=== PATIENT | female | born 1985 | race Caucasian/White ===

== ENCOUNTER 2018-05-28 06:29 | Inpatient (IN) | payer OTHER ==
[2018-05-28] MEDS ORDERED: AMPICILLIN 2,000 MG in SODIUM CHLORIDE 0.9% 100 ML IVPB STA (07:09)
[2018-05-28] MEDS ORDERED: OXYTOCIN 10 UNIT/ML 1 ML VIAL IM PRN (07:09)
[2018-05-28] MEDS ORDERED: LIDOCAINE 0.5% (PF) 5 MG/ML (50 ML SDV) SQ PRN (07:09)
[2018-05-28] MEDS ORDERED: CARBOPROST TROMETHAMINE 250 MCG/ML 1 ML AMP IM PRN (07:09)
[2018-05-28] MEDS ORDERED: TERBUTALINE 1 MG/ML VIAL SQ PRN (07:09)
[2018-05-28] MEDS ORDERED: METHYLERGONOVINE 0.2 MG/ML 1 ML AMP IM PRN (07:09)
[2018-05-28] MEDS ORDERED: LACTATED RINGERS 1,000 ML IV SCH (07:15)
[2018-05-28 07:22] LABS: ALT 25 U/L (9-52); AST 26 U/L (14-36); Blood Urea Nitrogen 4 mg/dL (7-17); LDH 548 U/L (313-618); Uric Acid 3.6 mg/dL (3.7-7.4)
[2018-05-28] MEDS ORDERED: BETAMET ACET-BETAMETH SOD PHOS 6 MG/ML VIAL IM SCH (07:30)
[2018-05-28 07:47] LABS: Anisocytosis Slight; Basophils # (A) 0.2 k/uL (0-0.2); Basophils % (A) 1 %; Eosinophils # (A) 0.2 k/uL (0-0.7); Eosinophils % (A) 2 %; HCT 25.6 % (34.0-46.0); HGB 7.7 gm/dL (11.4-16.0); Hypochromasia Marked; Lymphocytes # (A) 1.8 k/uL (1.0-4.8); Lymphocytes % (A) 11 %; MCH 20.5 pg (25.0-35.0); MCHC 30.2 g/dL (31.0-37.0); MCV 68.1 fL (80.0-100.0); Mean Platelet Volume 8.1; Microcytosis Marked; Monocytes # (A) 0.7 k/uL (0-1.0); Monocytes % (A) 4 %; Neutrophils # (A) 13.1 k/uL (1.3-7.7); Neutrophils % (A) 81 %; Platelet Count 243 k/uL (150-450); Poikilocytosis Moderate; RBC 3.76 m/uL (3.80-5.40); RDW 18.3 % (11.5-15.5); WBC 16.2 k/uL (3.8-10.6)
[2018-05-28 07:48] LABS: INR 0.8 (<1.2); Partial Thromboplastin Time 22.6 sec (22.0-30.0); Prothrombin Time 9.2 sec (9.0-12.0)
[2018-05-28 07:56] LABS: Appearance,Urine Clear (Clear); Bilirubin,Urine Negative (Negative); Blood,Urine Negative (Negative); Color,Urine Yellow; Glucose,Urine (UA) Negative (Negative); Ketones,Urine Negative (Negative); Leukocyte Esterase,Urine Negative (Negative); Nitrite,Urine Negative (Negative); PH, Urine 7.5 (5.0-8.0); Protein,Urine Negative (Negative); Specific Gravity,Urine 1.011 (1.001-1.035); Urobilinogen,Urine <2.0 mg/dL (<2.0)
--- NOTE | 2018-05-28 08:05 | P.HPOB ---
History of Present Illness H&P Date: 05/28/18 Chief Complaint: Bleeding and cramping This is a 32-year-old female 3 para 1 at 31-2/7 weeks with an estimated date of confinement of 07/28/2018, who presents to labor and delivery with complaints of vaginal bleeding that began about 3 AM this morning. She did state yesterday morning at about 2:58 in the morning she did feel a gush of fluid but then never felt anything further after that and thought she had urinated. This morning she began feeling back pain and cramping along with the bleeding. She started her care with me and showed up for 2 visits and then no longer showed up to the office. She was referred to maternal medicine due to her history of a delivery at 26 weeks but states she has not been to high risk in over 2 months. There has not been any records sent to my office from maternal- medicine and she again did not follow up after her second visit in my office. Obstetrical history: G3 3 P1. History of a 26 weeks delivery and a miscarriage. Review of Systems Constitutional: Denies chills, Denies fever Eyes: denies blurred vision, denies pain Ears, nose, mouth and throat: Denies headache, Denies sore throat Cardiovascular: Denies chest pain, Denies shortness of breath Respiratory: Denies cough Gastrointestinal: Reports abdominal pain Genitourinary: Reports abnormal vaginal bleeding, Reports pelvic pain, Reports Musculoskeletal: Reports low back pain Integumentary: Denies pruritus, Denies rash Neurological: Denies numbness, Denies weakness Past Medical History History of Any Multi-Drug Resistant Organisms: None Reported Past Surgical History: No Surgical Hx Reported Past Psychological History: No Psychological Hx Reported Smoking Status: Current every day smoker Past Alcohol Use History: None Reported Past Drug Use History: Marijuana (States history in the beginning of the ) Medications and Allergies Home Medications Medication Instructions Recorded Confirmed Type No Known Home Medications 05/28/18 05/28/18 History Allergies Allergy/AdvReac Type Severity Reaction Status Date / Time No Known Allergies Allergy Verified 05/28/18 06:34 Exam Osteopathic Statement: *. No significant issues noted on an osteopathic structural exam other than those noted in the History and Physical/Consult. Intake and Output 05/27/18 05/28/18 05/28/18 22:59 06:59 14:59 Other: Weight 73.482 kg HEENT: Within normal limits Heart: Regular rate and rhythm Lungs: Clear to auscultation bilaterally Abdomen: Cervix: Rim/bulging bag/0 station with some bloody discharge. Solitario is palpated and ruptured with clear fluid noted. heart tones: Reactive Contractions: Every 2-3 minutes Extremities: Negative Homans Results Result Diagrams: 05/28/18 06:55 05/28/18 06:55 Abnormal Lab Results - Last 24 Hours (Table) 05/28/18 05/28/18 05/28/18 Range/Units 06:55 06:55 06:55 WBC 16.2 H (3.8-10.6) k/uL RBC 3.76 L (3.80-5.40) m/uL Hgb 7.7 L (11.4-16.0) gm/dL Hct 25.6 L (34.0-46.0) % MCV 68.1 L (80.0-100.0) fL MCH 20.5 L (25.0-35.0) pg MCHC 30.2 L (31.0-37.0) g/dL RDW 18.3 H (11.5-15.5) % Neutrophils # 13.1 H (1.3-7.7) k/uL Fibrinogen 671 H (200-500) mg/dL BUN 4 L (7-17) mg/dL Creatinine 0.49 L (0.52-1.04) mg/dL Uric Acid 3.6 L (3.7-7.4) mg/dL Assessment and Plan (1) 31 weeks gestation of Current Visit: Yes Status: Acute Code(s): Z3A.31 - 31 WEEKS GESTATION OF SNOMED Code(s): 84013779 (2) labor in third trimester with delivery Current Visit: Yes Status: Acute Code(s): O60.14X0 - LABOR THIRD TRI W DELIVERY THIRD TRI, UNSP SNOMED Code(s): 3072723 Plan: Admission for active labor, eminent delivery. Will obtain all labs, urine drug screen and PIH labs. Expectant management. Pediatrics is notified.
[2018-05-28 08:09] LABS: Amphetamine Screen,Urine Not Detected (NotDetected); Barbiturate Screen,Urine Not Detected (NotDetected); Benzodiazepines Screen,Urine Not Detected (NotDetected); Cocaine Screen,Urine Not Detected (NotDetected); Methadone Screen, Urine Not Detected (NotDetected); Opiate Screen,Urine Not Detected (NotDetected); Oxycodone Screen, Urine Not Detected (NotDetected); Phencyclidine Screen,Urine Not Detected (NotDetected); Tricyclic Antidepressant,Urine Not Detected (NotDetected); Urn Cannabinoid Scrn Not Detected (NotDetected)
[2018-05-28] MEDS ORDERED: diphenhydrAMINE 50 MG CAP PO PRN (08:54)
[2018-05-28] MEDS ORDERED: SIMETHICONE 80 MG CHEWABLE PO PRN (08:54)
[2018-05-28] MEDS ORDERED: diphenhydrAMINE 50 MG/ML 1 ML VIAL IVP PRN ×2 (08:54)
[2018-05-28] MEDS ORDERED: ZOLPIDEM 5 MG TAB PO PRN (08:54)
[2018-05-28] MEDS ORDERED: ACETAMINOPHEN TAB 325 MG TAB PO PRN (08:54)
[2018-05-28] MEDS ORDERED: BENZOCAINE/MENTHOL SPRAY 1 GM/SPRAY AEROSOL TOPICAL PRN (08:54)
[2018-05-28] MEDS ORDERED: HYDROCORTISONE 2.5% RECTAL CREAM 30 GM TUBE RECTAL PRN (08:54)
[2018-05-28] MEDS ORDERED: WITCH HAZEL 1 EACH MED..PAD TOPICAL PRN (08:54)
[2018-05-28] MEDS ORDERED: IBUPROFEN 600 MG TAB PO PRN (08:54)
[2018-05-28] MEDS ORDERED: OXYTOCIN 20 UNITS/1000 ML NS 1,000 ML IV SCH (08:54)
[2018-05-28] MEDS ORDERED: LANOLIN CREAM 5 GM TUBE TOPICAL PRN (08:54)
[2018-05-28] MEDS ORDERED: diphenhydrAMINE 25 MG CAP PO PRN (08:54)
--- NOTE | 2018-05-28 08:56 | P.PROBDLV ---
Vaginal Delivery Note - . Vaginal Delivery Note: Patient began pushing shortly after arrival when she was found to be rim. Artificial rupture of membranes was carried out and clear fluid was noted along with some blood clots. She pushed for a short while and infant's head came to a crown. Infant's head delivered in a left occiput posterior lie followed immediately by the remainder the body. Nose and mouth were bulb suctioned after delivery. Several clots were attached to the baby and came out with the fluid. Cord was clamped and cut and was taken to warmer for pediatric evaluation and then to the nursery. A viable female infant is noted. Apgars and weight are pending at this time. Placenta delivered shortly thereafter, intact, with a three-vessel cord. Area of dark coloration and adherent clot was noted on at least 25-30% of the placenta. Uterus did contract fairly well after oxytocin was given and uterine massage was carried out. Inspection of the perineum revealed a first-degree perineal laceration. This area was anesthetized with 1% lidocaine and then sutured with 3-0 Vicryl suture in a running locked fashion. Estimated blood loss is approximately 100 mL's. Mother is in stable condition and is being evaluated in level I nursery by pediatrics.
[2018-05-28 09:50] VITALS: BMI 26.1
[2018-05-28] MEDS ORDERED: AMPICILLIN 1,000 MG in SODIUM CHLORIDE 0.9% 50 ML IVPB SCH (11:30)
[2018-05-28 12:20] LABS: HIV 1 AB Non-Reactive (Non-Reactive); HIV AB P24 Non-Reactive (Non-Reactive); HIV P24 AG Non-Reactive (Non-Reactive)
[2018-05-28 15:07] LABS: Anisocytosis Slight; Basophils % (A) 0 %; Eosinophils % (A) 0 %; HCT 23.3 % (34.0-46.0); Hypochromasia Marked; Lymphocytes # (A) 0.8 k/uL (1.0-4.8); Lymphocytes % (A) 4 %; MCH 20.1 pg (25.0-35.0); MCHC 29.1 g/dL (31.0-37.0); Mean Platelet Volume 9.8; Microcytosis Marked; Monocytes # (A) 0.3 k/uL (0-1.0); Monocytes % (A) 1 %; Neutrophils # (A) 17.9 k/uL (1.3-7.7); Neutrophils % (A) 94 %; Platelet Count 219 k/uL (150-450); Poikilocytosis Moderate; RBC 3.38 m/uL (3.80-5.40); RDW 18.2 % (11.5-15.5); WBC 19.1 k/uL (3.8-10.6)
[2018-05-28 15:09] LABS: HGB 6.8 gm/dL (11.4-16.0)
[2018-05-28 15:14] VITALS: RESP 16
[2018-05-29] MEDS: SENNOSIDES-DOCUSATE SODIUM 1 EACH TAB PO SCH ×2 (05:44→09:03)
[2018-05-29 06:04] LABS: Anisocytosis Slight; Basophils % (A) 0 %; Eosinophils % (A) 0 %; HCT 23.2 % (34.0-46.0); Hypochromasia Marked; Lymphocytes # (A) 1.9 k/uL (1.0-4.8); Lymphocytes % (A) 10 %; MCH 20.3 pg (25.0-35.0); MCHC 29.5 g/dL (31.0-37.0); MCV 68.9 fL (80.0-100.0); Microcytosis Marked; Monocytes # (A) 0.7 k/uL (0-1.0); Monocytes % (A) 4 %; Neutrophils # (A) 16.6 k/uL (1.3-7.7); Neutrophils % (A) 85 %; Platelet Count 271 k/uL (150-450); Poikilocytosis Moderate; RBC 3.37 m/uL (3.80-5.40); RDW 18.8 % (11.5-15.5); WBC 19.6 k/uL (3.8-10.6)
[2018-05-29 06:08] LABS: HGB 6.8 gm/dL (11.4-16.0)
[2018-05-29 07:37] VITALS: BP 122/70; PULSE 84; TEMP 98.3
--- NOTE | 2018-05-29 09:12 | P.DS ---
Providers Date of admission: 05/28/18 06:57 Expected date of discharge: 05/29/18 Attending physician: Marylin Scales Primary care physician: Stated None - Discharge Diagnosis(es) (1) 31 weeks gestation of Current Visit: Yes Status: Acute (2) labor in third trimester with delivery Current Visit: Yes Status: Acute Hospital Course: This is a 32-year-old female 3 para 1 at 31-2/7 weeks who presented in active labor with vaginal bleeding. She delivered vaginally a viable female infant with scores pending and weight of 4 lbs. 9 oz. Placental abruption was noted at delivery with adherent clot. [facility]. Patient's bleeding has been minimal since delivery. Pain has been minimal. She was anemic with a hemoglobin of 7.7 on admission which did drop to 6.8 at 6 hours after delivery but has been stable this morning at 6.8. She denies any dizziness or lightheadedness. She has been afebrile. Vital signs are otherwise stable. Abdomen is firm and nontender. Extremities show negative Homans. Impression is status post vaginal delivery with placental abruption. Plan is to discharge home today. She is advised to take Slow Fe [id number] daily. She would like a tubal ligation and is advised to go to the office to have tubal papers signed before her visit. She is advised to follow up in the office in 6 weeks for a visit. She is advised to call the office if she has any further questions or concerns prior to her appointment time. Routine instructions are given. Procedures: Spontaneous vaginal delivery of a viable female on 05/28/2018 Patient Condition at Discharge: Stable Plan - Discharge Summary New Discharge Prescriptions: Continue Pnv,Calcium 72/Iron/Folic Acid [ Plus Tablet] 1 each PO DAILY Calcium Carbonate [Tums] 500 mg PO Q6HR PRN PRN Reason: Gi Upset Acetaminophen [Tylenol] 650 mg PO Q6HR Discharge Medication List Acetaminophen [Tylenol] 650 mg PO Q6HR 05/28/18 [History] Calcium Carbonate [Tums] 500 mg PO Q6HR PRN 05/28/18 [History] Pnv,Calcium 72/Iron/Folic Acid [ Plus Tablet] 1 each PO DAILY 05/28/18 [History] Follow up Appointment(s)/Referral(s): Marylin Scales DO [Doctor of Osteopathic Medicine] - 6 Weeks Activity/Diet/Wound Care/Special Instructions: Instructions 1. Do not begin any exercise program for 3 weeks. 2. Do not resume sexual relations for 3 weeks or longer if uncomfortable. 3. You may take tub baths or showers at any time. 4. You may use tampons if desired after 3 weeks. 5. Keep the area of episiotomy (stitches) clean and dry. 6. If you are not nursing, wear a good fitting, supportive bra during the day and limit fluid intake for at least 1 week to prevent breast engorgement. 7. Call the office, [phone], within the next week to make appointment for your 6 week checkup if it has not already been made. 8. Report any of the following occurrences to the doctor promptly: a. Heavy, excessive bleeding b. Chills, fever c. Burning or frequency of urination d. Pain or redness and breasts if nursing e. Increasing pain or swelling in episiotomy (stitches). In addition to the above instructions, the following additional should be followed: 1. No heavy lifting or straining (exercising) until after 6 week checkup. 2. Keep abdominal incision clean and dry: You may wear a dressing if more comfortable. 3. Make office appointment for 10 days after going home or as instructed by her doctor. Discharge Disposition: HOME SELF-CARE
[2018-05-29 14:47] LABS: N. gonorrhoeae,PCR Negative (Neg,Equiv); Neisseria Source Urine
[2018-05-29 14:50] LABS: C. trachomatis,PCR Negative (Neg,Equiv); Chlamydia trachomatis Source Urine
== END 2018-05-29 09:20 | disposition home or self-care (01) | DRG 805 ==
LOC: FBPOP 06:29 → 4FBP 06:57
PROVIDERS: ADMIT Obstetrics & Gynecology; ATTEND Obstetrics & Gynecology
PROC: 10E0XZZ Delivery of Products of Conception, External Approach (ICD-10-PCS; principal; 2018-05-28)
PROC: 0HQ9XZZ Repair Perineum Skin, External Approach (ICD-10-PCS; 2018-05-28)
DX: O45.93 Premature separation of placenta, unspecified, third trimester (principal); O60.14X0 Preterm labor third trimester with preterm delivery third trimester, not applicable or unspecified; Z37.0 Single live birth; O70.0 First degree perineal laceration during delivery; O99.02 Anemia complicating childbirth; D64.9 Anemia, unspecified; O99.334 Smoking (tobacco) complicating childbirth; F17.200 Nicotine dependence, unspecified, uncomplicated; Z3A.31 31 weeks gestation of pregnancy
CPT/HCPCS: 59025; 80306; 81003; 82565; 82570; 82947; 83615; 84112; 84156; 84450; 84460; 84520; 84550; 85025; 85384; 85610; 85730; 86762; 86780; 86850; 86900; 86901; 87340; 87390; 87491; 87591; 88307; 99215

== ENCOUNTER 2021-01-15 04:30 | Inpatient (IN) | payer OTHER ==
[2021-01-15] MEDS ORDERED: OXYTOCIN 30 UNITS/500 ML NS 30 UNIT in SALINE 1 500ML.BAG IV SCH (05:15)
[2021-01-15] MEDS ORDERED: diphenhydrAMINE 25 MG CAP PO PRN (05:40)
[2021-01-15] MEDS ORDERED: ZOLPIDEM 5 MG TAB PO PRN (05:40)
[2021-01-15] MEDS ORDERED: ACETAMINOPHEN TAB 325 MG TAB PO PRN (05:40)
[2021-01-15] MEDS ORDERED: IBUPROFEN 600 MG TAB PO PRN (05:40)
[2021-01-15] MEDS ORDERED: HYDROCORTISONE 2.5% RECTAL CREAM 30 GM TUBE RECTAL PRN (05:40)
[2021-01-15] MEDS ORDERED: diphenhydrAMINE 50 MG CAP PO PRN (05:40)
[2021-01-15] MEDS ORDERED: LANOLIN CREAM 5 GM TUBE TOPICAL PRN (05:40)
[2021-01-15] MEDS ORDERED: SIMETHICONE 80 MG CHEWABLE PO PRN (05:40)
[2021-01-15] MEDS ORDERED: diphenhydrAMINE 50 MG/ML 1 ML VIAL IVP PRN ×2 (05:40)
[2021-01-15] MEDS ORDERED: BENZOCAINE/MENTHOL SPRAY 1 GM/SPRAY AEROSOL TOPICAL PRN (05:40)
[2021-01-15 06:35] LABS: Anisocytosis Slight; Basophils # (A) 0.1 k/uL (0-0.2); Basophils % (A) 0 %; Eosinophils # (A) 0.1 k/uL (0-0.7); Eosinophils % (A) 1 %; HCT 21.4 % (34.0-46.0); Hypochromasia Marked; Lymphocytes # (A) 1.4 k/uL (1.0-4.8); Lymphocytes % (A) 9 %; MCH 18.8 pg (25.0-35.0); MCHC 29.3 g/dL (31.0-37.0); MCV 64.2 fL (80.0-100.0); Mean Platelet Volume 8.6; Microcytosis Marked; Monocytes # (A) 0.6 k/uL (0-1.0); Monocytes % (A) 4 %; Neutrophils # (A) 12.7 k/uL (1.3-7.7); Neutrophils % (A) 85 %; Platelet Count 305 k/uL (150-450); Poikilocytosis Moderate; RBC 3.33 m/uL (3.80-5.40)
[2021-01-15 07:36] LABS: HGB 6.3 gm/dL (11.4-16.0)
[2021-01-15] MEDS: SENNOSIDES-DOCUSATE SODIUM 1 EACH TAB PO SCH ×2 (08:25→20:57)
[2021-01-15 08:32] LABS: Appearance,Urine Clear (Clear); Bacteria,Urine Rare /hpf; Bilirubin,Urine Negative (Negative); Blood,Urine Large (Negative); Color,Urine Yellow; Glucose,Urine (UA) Negative (Negative); Ketones,Urine Negative (Negative); Leukocyte Esterase,Urine Moderate (Negative); Mucus,Urine Occasional /hpf; Nitrite,Urine Negative (Negative); Protein,Urine 1+ (Negative); RBC,Urine >182 /hpf (0-5); Squamous Epithelial Cell,Urine 1 /hpf (0-4); Urobilinogen,Urine <2.0 mg/dL (<2.0); WBC,Urine 8 /hpf (0-5)
[2021-01-15 08:33] LABS: Amphetamine Screen,Urine Detected (NotDetected); Barbiturate Screen,Urine Not Detected (NotDetected); Benzodiazepines Screen,Urine Not Detected (NotDetected); Cocaine Screen,Urine Not Detected (NotDetected); Methadone Screen, Urine Not Detected (NotDetected); Opiate Screen,Urine Not Detected (NotDetected); Oxycodone Screen, Urine Not Detected (NotDetected); Phencyclidine Screen,Urine Not Detected (NotDetected); Tricyclic Antidepressant,Urine Not Detected (NotDetected); Urn Cannabinoid Scrn Not Detected (NotDetected)
--- NOTE | 2021-01-15 08:38 | P.HPOB ---
History of Present Illness H&P Date: 01/15/21 Chief Complaint: Unattended vaginal delivery at home This is a 35 year old 3 para 0303 woman who presents by EMS after having a spontaneous vaginal delivery at home. She reports that she is approximately 33 weeks gestation and has not had routine care. She was given an estimated due date of 03/05/2021 from a [facility]. She reports a history of anemia. She states that she began having the abdominal pain and contractions at approximately 1 AM. These were irregular. She had spontaneous rupture of membranes at approximately 2:15 AM. She then had rapid progression of the her labor and delivered on the liveborn at home. EMS was called. She did also deliver the placenta at home. Upon arrival on labor and delivery triage she was noted to be stable with moderate lochia. Infant was taken to the special care nursery for evaluation and appears to be approximately 35 weeks by Ghotra score. Weight is 5 lbs. 6 oz. Patient's obstetrical history is significant for a 26 week vaginal delivery in 2012 and a 32 week vaginal delivery in 2019. She reports being on iron for anemia with all 3 pregnancies. She denies any other chronic medical problems including high blood pressure, diabetes, asthma. She is and the father of the baby is with her. She describes having an upper respiratory infection for the past 3 weeks with cough. She had a rapid covert test yesterday which she reports was negative. She denies drug use or alcohol during the . Review of Systems Constitutional: Reports fatigue, Denies chills, Denies fever Ears, nose, mouth and throat: Reports nasal congestion Cardiovascular: Denies chest pain, Denies edema, Denies high blood pressure, Denies irregular heart beat, Denies shortness of breath Respiratory: Reports congestion, Reports cough Gastrointestinal: Denies diarrhea, Denies nausea, Denies vomiting Genitourinary: Reports as per HPI Menstruation: Reports as per HPI Integumentary: Denies rash Neurological: Denies headaches Psychiatric: Denies anxiety, Denies depression Past Medical History Past Medical History: No Reported History Additional Past Medical History / Comment(s): migraine hx, History of Any Multi-Drug Resistant Organisms: None Reported Past Surgical History: No Surgical Hx Reported Past Anesthesia/Blood Transfusion Reactions: No Reported Reaction Past Psychological History: Anxiety Additional Psychological History / Comment(s): nevermedicated for anxiety Smoking Status: Current every day smoker Past Alcohol Use History: None Reported Past Drug Use History: None Reported - Past Family History Father Additional Family Medical History / Comment(s): hypoglycemia Sister(s) Family Medical History: Seizure Disorder Additional Family Medical History / Comment(s): epilepsy Medications and Allergies Home Medications Medication Instructions Recorded Confirmed Type Pnv,Calcium 72/Iron/Folic Acid 1 each PO DAILY 05/28/18 01/15/21 History [ Plus Tablet] Allergies Allergy/AdvReac Type Severity Reaction Status Date / Time No Known Allergies Allergy Verified 01/15/21 04:38 Exam Vital Signs Temp Pulse Resp BP Pulse Ox 01/15/21 07:49 98.1 F 115 H 18 133/57 01/15/21 07:48 109 H 146/67 01/15/21 07:46 100 139/71 01/15/21 06:39 97.6 F 91 16 135/70 98 01/15/21 06:09 89 16 131/75 01/15/21 05:39 76 18 131/71 01/15/21 05:24 80 18 139/64 01/15/21 05:09 88 14 134/66 01/15/21 04:54 70 16 126/59 01/15/21 04:49 84 16 129/81 01/15/21 04:37 97.5 F L 82 16 130/79 01/15/21 04:30 97.5 F L 82 16 130/79 Intake and Output 01/14/21 01/15/21 01/15/21 22:59 06:59 14:59 Other: # Voids 0 1 Weight 69.4 kg This is a pleasant and comfortable appearing female in no obvious distress. HEENT exam is unremarkable. The heart is of regular rate and rhythm and her lungs are clear to auscultation bilaterally. She does have a productive cough. The abdomen is soft and nontender. Uterus is firm and approximately 4 cm below the umbilicus in the midline. Vaginal exam reveals bilateral periurethral abrasions. No perineal lacerations. Minimal lochia. Extremities free of edema or rash. Results Result Diagrams: 01/15/21 06:18 01/15/21 06:15 Abnormal Lab Results - Last 24 Hours (Table) 01/15/21 Range/Units 06:18 WBC 15.0 H (3.8-10.6) k/uL RBC 3.33 L (3.80-5.40) m/uL Hgb 6.3 L* (11.4-16.0) gm/dL Hct 21.4 L (34.0-46.0) % MCV 64.2 L (80.0-100.0) fL MCH 18.8 L (25.0-35.0) pg MCHC 29.3 L (31.0-37.0) g/dL RDW 19.0 H (11.5-15.5) % Neutrophils # 12.7 H (1.3-7.7) k/uL Assessment and Plan (1) delivery Current Visit: Yes Status: Acute Code(s): O60.10X0 - LABOR W DELIVERY, UNSP TRIMESTER, UNSP SNOMED Code(s): 036297812 (2) Chronic anemia Current Visit: Yes Status: Acute Code(s): D64.9 - ANEMIA, UNSPECIFIED SNOMED Code(s): 367418399 Plan: This is a 35 year old 3 para 0303 woman who is status post on attended home vaginal delivery of a liveborn infant. Hemoglobin is 6.9. Orthostatic vital signs are normal and she is asymptomatic. She reports a history of anemia. We will restart iron supplementation. Her blood type is A+. The rest of her labs are pending. is doing well in the special care nursery and appears to be older than anticipated based on maternal due date. Routine care. Time with Patient: Greater than 30
[2021-01-15] MEDS: FERROUS SULFATE 325 MG TAB PO SCH ×2 (09:27→18:29)
[2021-01-15 10:28] LABS: Hepatitis B Surface Antigen Nonreactive (Nonreactive)
[2021-01-15 15:12] LABS: HIV 2 AB Non-Reactive (Non-Reactive); HIV AB P24 Non-Reactive (Non-Reactive); HIV P24 AG Non-Reactive (Non-Reactive)
[2021-01-16 07:11] LABS: Anisocytosis Slight; Basophils # (A) 0.1 k/uL (0-0.2); Basophils % (A) 1 %; Eosinophils # (A) 0.3 k/uL (0-0.7); Eosinophils % (A) 2 %; Hypochromasia Marked; Lymphocytes # (A) 2.3 k/uL (1.0-4.8); Lymphocytes % (A) 17 %; MCH 18.7 pg (25.0-35.0); MCHC 29.4 g/dL (31.0-37.0); MCV 63.7 fL (80.0-100.0); Mean Platelet Volume 9.2; Microcytosis Marked; Monocytes # (A) 0.6 k/uL (0-1.0); Monocytes % (A) 4 %; Neutrophils # (A) 10.2 k/uL (1.3-7.7); Neutrophils % (A) 75 %; Platelet Count 362 k/uL (150-450); Poikilocytosis Moderate; RBC 3.12 m/uL (3.80-5.40); RDW 19.5 % (11.5-15.5); WBC 13.6 k/uL (3.8-10.6)
[2021-01-16 07:19] LABS: HGB 5.8 gm/dL (11.4-16.0)
[2021-01-16 07:20] LABS: HCT 19.9 % (34.0-46.0)
[2021-01-16] MEDS: SENNOSIDES-DOCUSATE SODIUM 1 EACH TAB PO SCH (09:04)
[2021-01-16] MEDS: FERROUS SULFATE 325 MG TAB PO SCH (09:04)
--- NOTE | 2021-01-16 09:38 | P.DS ---
Providers Date of admission: 01/15/21 04:30 Expected date of discharge: 01/16/21 Attending physician: Nani Jerry Primary care physician: Stated None - Discharge Diagnosis(es) (1) Chronic anemia Current Visit: Yes Status: Acute (2) delivery Current Visit: Yes Status: Acute Hospital Course: The patient is a 35-year-old 3 para 0303 who presented via EMS after having a spontaneous vaginal delivery at home. She was approximately 33 weeks of gestation and had had no routine care. [facility] had given [facility] date of confinement of 03/05/2021. She had spontaneous rupture of membranes at home and then had rapid progression of labor and delivered of a liveborn infant at home after which time EMS was called. The placenta also apparently delivered at home intact. On labor and delivery, she was seen by my partner and examined at which time there was no lacerations or other complications. She did deliver a viable 5 lbs. 6 oz. baby boy with no sign Apgars as she delivered at home. Her presenting hemoglobin was 6.3 and she has a history of chronic anemia she is well aware of and is otherwise entirely asymptomatic for her anemia. Repeat hemoglobin this morning is 5.8 with vital signs completely stable and the patient has no signs or symptoms of orthostasis. There is no ongoing bleeding of any significance anywhere and the patient is comfortable. After discussion with the patient, she has opted to be discharged home to follow-up in the office in 6 weeks' time for routine care. She is instructed to call for any significantly increased bleeding or foul- smelling lochia, significantly increased fever abdominal pain, perineal complaints, breast complaints, or anything else that concerned her. She was additionally instructed to have nothing in the vagina for at least 6 weeks time to include intercourse. She understood her instructions and agrees to follow up as noted above. Discharge medications included recommendation for iron sulfate 325 mg twice daily for at least 1 month and more likely 2-3. She is ad ditionally use [id number] analgesic pain medications as needed. Maternal blood type is A+ and rubella status is immune. Procedures: #1. Routine care Patient Condition at Discharge: Stable Plan - Discharge Summary New Discharge Prescriptions: No Action Pnv,Calcium 72/Iron/Folic Acid [ Plus Tablet] 1 each PO DAILY Discharge Medication List Pnv,Calcium 72/Iron/Folic Acid [ Plus Tablet] 1 each PO DAILY 05/28/18 [History] Follow up Appointment(s)/Referral(s): Nani Jerry MD [STAFF PHYSICIAN] - 6 Weeks Discharge Disposition: HOME SELF-CARE
[2021-01-16 17:16] VITALS: BP 119/68; PULSE 89; RESP 18; TEMP 98.5
[2021-01-19 08:59] LABS: C. trachomatis,PCR Negative (Neg,Equiv); Chlamydia trachomatis Source Urine; N. gonorrhoeae,PCR Negative (Neg,Equiv); Neisseria Source Urine
== END 2021-01-16 18:10 | disposition home or self-care (01) | DRG 776 ==
LOC: 4FBP 04:30
PROVIDERS: ADMIT Obstetrics & Gynecology; ATTEND Obstetrics & Gynecology
DX: Z39.0 Encounter for care and examination of mother immediately after delivery (principal); O60.14X0 Preterm labor third trimester with preterm delivery third trimester, not applicable or unspecified; Z3A.33 33 weeks gestation of pregnancy; Z37.0 Single live birth; D64.9 Anemia, unspecified; F17.210 Nicotine dependence, cigarettes, uncomplicated; O99.02 Anemia complicating childbirth; O99.334 Smoking (tobacco) complicating childbirth; O99.344 Other mental disorders complicating childbirth; F41.9 Anxiety disorder, unspecified; O99.52 Diseases of the respiratory system complicating childbirth; J06.9 Acute upper respiratory infection, unspecified; Z82.0 Family history of epilepsy and other diseases of the nervous system
CPT/HCPCS: 80306; 81001; 82947; 85025; 86762; 86780; 86850; 86900; 86901; 87340; 87390; 87491; 87591